=== PATIENT | female | born 1960 | race Caucasian/White ===

== ENCOUNTER 2016-08-09 03:33 | Emergency (ER) | payer SELFPAY ==
[~2016-08-09] VITALS: Ht 170.2 cm; Wt 61.2 kg
[2016-08-09 03:35] VITALS: BP_SYST 141
[2016-08-09] MEDS ORDERED: DIPH-TET-PERTUS Vaccine 0.5 ML VIAL (ADACEL) I.M. ONE (03:45)
[2016-08-09] MEDS ORDERED: BACITRACIN 1 GM OINT TP ONE (04:00)
[2016-08-09] MEDS ORDERED: LIDOCAINE/EPI 1% 1:100000 20 ML VIAL INJ ONE (04:00)
[2016-08-09 04:20] VITALS: BP_SYST 135
== END 2016-08-09 04:20 ==
LOC: SED 03:33
DX: S01.81XA Laceration without foreign body of other part of head, initial encounter (principal); R03.0 Elevated blood-pressure reading, without diagnosis of hypertension; Y04.0XXA Assault by unarmed brawl or fight, initial encounter; Y93.89 Activity, other specified; Y92.89 Other specified places as the place of occurrence of the external cause; Y99.8 Other external cause status
CPT/HCPCS: 90715; 99283

== ENCOUNTER 2016-12-31 18:37 | Emergency (ER) | payer SELFPAY ==
[~2016-12-31] VITALS: Ht 172.7 cm; Wt 54.0 kg
[2016-12-31 18:40] VITALS: BP_SYST 149
--- NOTE | 2016-12-31 18:40 | NUR ---
Patient was brought in by [facility] for ok to book due to having drank a pint of voodka as per family. Patient is acting somewhat erratic, in fact kissing my hand during triage, however she is alert and oriented. Patient has multiple superficial scrtach curry to bilat to wrist which she states are from several days ago; patient specifically denies suicidal ideation. Patient is also noted to have a wound to the medial aspect of left great toe. Patient to ER bed 4 to gown for evaluation. Side rails up. Assumed care of patient.
--- NOTE | 2016-12-31 18:49 | NUR ---
ER Dr. Sanchez at bedside examining patient.
[2016-12-31 18:58] VITALS: BP_SYST 130
--- NOTE | 2016-12-31 18:58 | NUR ---
ship's officer and patient given written and verbal discharge instructions and verbalizes understanding. ER MD discussed with patient the results and treatment provided. Patient in stable condition. ID arm band removed. Rx of Bacitracin given. Patient educated on pain management and to follow up with PMD. Pain Scale 0/10. Opportunity for questions provided and answered. Pt leaves ambulatory, in cuffs, in custody of peace officers to senior care.
== END 2016-12-31 18:58 ==
LOC: SED 18:40
DX: Z02.89 Encounter for other administrative examinations (principal)
CPT/HCPCS: 99283

== ENCOUNTER 2019-02-27 00:51 | Emergency (ER) | payer MEDICAID ==
[~2019-02-27] VITALS: Ht 167.6 cm; Wt 54.4 kg
[2019-02-27 01:21] VITALS: BP_SYST 124
[2019-02-27 02:40] LABS: BILIRUBIN,URINE NEGATIVE (NEGATIVE); BLOOD, URINE NEGATIVE (NEGATIVE); CLARITY/URINE CLEAR (CLEAR); COLOR,URINE YELLOW (YELLOW); GLUCOSE,URINE NEGATIVE (NEGATIVE); KETONES,URINE NEGATIVE (NEGATIVE); LEUKOCYTE ESTERASE ,URINE 2+ (NEGATIVE); NITRITE, URINE NEGATIVE (NEGATIVE); PROTEIN URINE NEGATIVE (NEGATIVE); UROBILINOGEN,URINE 0.2 (0.2-1.0)
[2019-02-27 02:50] LABS: BACTERIA,URINE FEW /HPF (None Seen)
[2019-02-27 02:52] LABS: URINE AMPHETAMINE POSITIVE (NEG <=500)
[2019-02-27 02:53] LABS: BARBITURATE, URINE NEGATIVE (NEG <=200); BENZODIAZEPINE, URINE NEGATIVE (NEG <=150); CANNABINOID, URINE NEGATIVE (NEG <=50); COCAINE, URINE NEGATIVE (NEG <=150); METHAMPHETAMINES SCREEN,URINE POSITIVE (NEG <=500); OPIATE, URINE NEGATIVE (NEG <=100); PHENCYCLIDINE SCREEN,URINE NEGATIVE (NEG <=25); UR TRICYCLIC ANTIDEPRESSANTS NEGATIVE (NEG <=300); URINE METHADONE NEGATIVE (NEG <=200); URINE OXYCODONE SCREEN NEGATIVE (NEG <=100); URINE PROPOXYPHENE SCREEN NEGATIVE (NEG <=300)
== END 2019-02-27 02:53 | disposition left against medical advice (07) ==
LOC: SED 00:51
DX: R22.41 Localized swelling, mass and lump, right lower limb (principal); R20.2 Paresthesia of skin; M54.2 Cervicalgia; M54.9 Dorsalgia, unspecified; Z53.21 Procedure and treatment not carried out due to patient leaving prior to being seen by health care provider
CPT/HCPCS: 80307; 81000; 87086; 99281; J7040